=== PATIENT | male | born 1980 | race Caucasian/White ===

== ENCOUNTER 2017-05-30 09:59 | Emergency (ER) | payer OTHER ==
[2017-05-30 10:19] VITALS: BMI 27.3
[2017-05-30 10:21] VITALS: RESP 18; TEMP 98
--- NOTE | 2017-05-30 10:55 | C.PDOC ---
History Of Present Illness 36 yo male, presents with cp. cp describes cp as diffuse "cramping" worse for last few days. pain worse with laying down. no fevers, cough, n/v/d, urianry changes Time Seen by Provider: 05/30/17 10:37 Chief Complaint (Nursing): Chest Pain Past Medical History Reviewed: Historical Data, Nursing Documentation, Vital Signs Vital Signs: Last Vital Signs Temp 98 F 05/30/17 12:15 Pulse 77 05/30/17 12:15 Resp 18 05/30/17 12:15 BP 126/81 05/30/17 12:15 Pulse Ox 95 05/30/17 13:19 Surgical History: Appendectomy Family History: States: Unknown Family Hx - Social History Hx Alcohol Use: No Hx Substance Use: No - Immunization History Hx Tetanus Toxoid Vaccination: No Hx Influenza Vaccination: No Hx Pneumococcal Vaccination: No Review Of Systems Cardiovascular: Positive for: Chest Pain Physical Exam - Physical Exam Appears: Well, No Acute Distress Skin: Normal Color, Warm, Dry Eye(s): bilateral: Normal Inspection, PERRL, EOMI Nose: Normal Throat: Normal Neck: Normal Cardiovascular: Rhythm Regular Respiratory: Normal Breath Sounds Gastrointestinal/Abdominal: Normal Exam, Soft, No Tenderness, No Guarding, No Rebound Back: Normal Inspection Extremity: Normal ROM ED Course And Treatment - Laboratory Results Result Diagrams: 05/30/17 11:01 05/30/17 11:01 O2 Sat by Pulse Oximetry: 95 Medical Decision Making Medical Decision Making: cp r/o acs. consider pericarditis- bedside us shows no pericardial effusion- ekg nsr 80 no stt wave changes, perc neg 1200: pt reassesed: pain resolved s/p toradol. suspect pericarditis. pt advise outpt f/u and return precautions Disposition - Disposition Referrals: [facility] [Outside] [facility] [Outside] [facility] [Outside] [facility] [Outside] Lambert Springer MD [Staff Provider] - Disposition: HOME/ ROUTINE Disposition Time: 12:03 Condition: STABLE Additional Instructions: please follow up with your doctor. return to er with worsening symptoms or concerns. please see specialist. Prescriptions: Naproxen 500 mg PO BID PRN #14 tab PRN Reason: Pain, Mild (1-3) Instructions: Chest Pain (ED), Acute Pericarditis (ED) Forms: [facility] (Welsh), Work Excuse - Clinical Impression Clinical Impression: Chest pain
[2017-05-30 11:08] LABS: BASO % 0.6 % (0.0-2.0); EOS # 0.1 K/uL (0.0-0.7); EOS % 1.4 % (0.0-4.0); HEMATOCRIT 43.3 % (35.0-51.0); LYMPH # 1.4 K/uL (1.0-4.3); LYMPH % 30.5 % (20.0-40.0); MEAN CORPUSCULAR HEMOGLOBIN 28.8 pg (27.0-31.0); MEAN CORPUSCULAR HGB CONC 34.7 g/dL (33.0-37.0); MEAN PLATELET VOLUME 9.5 fL (7.2-11.7); MONO # 0.4 K/uL (0.0-0.8); MONO % 9.5 % (0.0-10.0); NRBC % 0.1 % (0.0-2.0); RED CELL DISTRIBUTION WIDTH 12.9 % (11.5-14.5); WHITE BLOOD COUNT 4.7 K/uL (4.8-10.8)
[2017-05-30 11:16] LABS: INR 1.1
--- NOTE | 2017-05-30 11:23 | RAD ---
HISTORY: chest pain COMPARISON: Chest radiographs 05/25/2012. TECHNIQUE: Chest PA and lateral FINDINGS: LUNGS: No active pulmonary disease. PLEURA: No significant pleural effusion identified. No pneumothorax apparent. CARDIOVASCULAR: Normal. OSSEOUS STRUCTURES: No significant abnormalities. VISUALIZED UPPER ABDOMEN: Normal. OTHER FINDINGS: None. IMPRESSION: No interval acute cardiopulmonary disease appreciated.
[2017-05-30 11:39] LABS: ALKALINE PHOSPHATASE 61 U/L (38-126); ALT/SGPT 30 U/L (21-72); AST/SGOT 19 U/L (17-59); BILIRUBIN,TOTAL 1.7 mg/dL (0.2-1.3); BLOOD UREA NITROGEN 15 mg/dL (9-20); CALCIUM 8.9 mg/dl (8.6-10.4); CARBON DIOXIDE 24 mmol/L (22-30); CHLORIDE 103 mmol/L (98-107); GFR AFRICAN-AMERICAN > 60; GLUCOSE,RANDOM 101 mg/dL (75-110); POTASSIUM 4.2 mmol/L (3.6-5.2); SODIUM 139 mmol/L (132-148); TOTAL PROTEIN 8.6 g/dL (6.3-8.3)
[2017-05-30 11:54] LABS: RBC URINE 1 /hpf (0-3); URINE BACTERIA RARE (<OCC); URINE BILIRUBIN NEGATIVE (NEGATIVE); URINE BLOOD NEGATIVE (NEGATIVE); URINE COLOR Yellow (YELLOW); URINE GLUCOSE (UA) NORMAL (Normal); URINE KETONE NEGATIVE (NEGATIVE); URINE LEUKOCYTE ESTERASE NEG Leu/uL (Negative); URINE PROTEIN NEGATIVE (NEGATIVE); URINE UROBILINOGEN NORMAL mg/dL (0.2-1.0)
[2017-05-30 11:54] LABS: ALB/GLOB RATIO 1.2 (1.0-2.1)
[2017-05-30 12:15] VITALS: BP 126/81; PULSE 77
[2017-05-30 12:17] VITALS: O2SAT 95
== END 2017-05-30 12:15 | disposition home or self-care (01) ==
LOC: C.ER 09:59
DX: R07.9 Chest pain, unspecified (principal)
CPT/HCPCS: 71020; 80053; 81001; 84484; 85025; 85610; 85730; 96374; 99284; J1885